=== PATIENT | female | born 1960 | race African-American/Black ===

== ENCOUNTER 2018-07-17 11:01 | Inpatient (IN) | payer MEDICAID ==
[~2018-07-17] VITALS: Ht 152.4 cm; Wt 44.5 kg
[2018-07-17] MEDS ORDERED: ONDANSETRON HCL 4MG/2ML INJ IV STA (11:48)
[2018-07-17] MEDS ORDERED: SODIUM CHLORIDE 0.9% 1,000 ML IV ONE (11:48)
[2018-07-17] MEDS ORDERED: MORPHINE SULFATE 4 MG/ML CPJ (NOT FOR IM USE) IV STA (11:48)
[2018-07-17 12:59] LABS: BASOPHILS % 0.2 % (0.0-2.0); HEMATOCRIT. 45.2 % (36.0-48.0); LYMPHOCYTES % 8.8 % (20.0-50.0); MEAN CORPUSCULAR VOLUME 96.7 fL (81.0-99.0); MEAN PLATELET VOLUME 8.5 fl (7.4-10.4); MONOCYTES % 1.8 % (2.0-8.0); NEUTROPHILS % 89.2 % (40.0-76.0); PLATELET 294 x1000/uL (130-400); RED BLOOD CELL COUNT 4.67 mill/uL (4.2-5.4); RED CELL DISTRIBUTION WIDTH 15.2 % (11.6-14.6)
[2018-07-17] MEDS ORDERED: MORPHINE SULFATE 2 MG/ML CPJ (NOT FOR IM USE) IV NR (13:00)
[2018-07-17 13:10] LABS: CHLORIDE 106 mEq/L (98-107)
[2018-07-17 13:15] LABS: ETHANOL BLOOD < 10 mg/dL
[2018-07-17] MEDS ORDERED: MAGNESIUM 1 G PREMIX 100 ML IV NR (14:15)
[2018-07-17] MEDS ORDERED: GUAIFENESIN 200MG/10ML SUGAR FREE UDC PO PRN (20:30)
[2018-07-17] MEDS ORDERED: IPRATROPIUM/ALBUTEROL 0.5-3(2.5)MG/3ML NEB HHN PRN (20:30)
[2018-07-17] MEDS: HYDROMORPHONE HCL/PF 2MG/ML CPJ IV PRN (20:52)
[2018-07-17 21:13] LABS: T4 FREE 1.1 ng/dL (0.76-1.46)
[2018-07-17] MEDS ORDERED: FAMOTIDINE 20MG TABLET PO NR (21:15)
[2018-07-17] MEDS ORDERED: LEVETIRACETAM 500MG/5ML CUP PO SCH (21:15)
[2018-07-17] MEDS: ENOXAPARIN 60MG/0.6ML SYR SUBCUT SCH (21:59)
[2018-07-18 02:00] VITALS: BP 122/87
[2018-07-18] MEDS ORDERED: SODIUM CHLORIDE 0.9% 1,000 ML IV SCH (02:37)
[2018-07-18] MEDS ORDERED: APIX5TAB PO (02:46)
[2018-07-18] MEDS ORDERED: KEPP500 PO (02:47)
[2018-07-18] MEDS ORDERED: TRAM50TA PO (02:48)
[2018-07-18 04:00] VITALS: BP_SYST 129; BP_SYST 133; BP_DIAS 46; BP_DIAS 52
[2018-07-18] MEDS ORDERED: LIDOCAINE HCL 1% 20ML VIAL (Pyxis) INJ ONE (07:56)
[2018-07-18 08:00] VITALS: BP 110/70
[2018-07-18] MEDS ORDERED: FAMOTIDINE 20MG TABLET PO SCH (09:00)
[2018-07-18 09:11] LABS: INR 1.2; PROTHROMBIN TIME 12.4 sec (9.1-11.1)
[2018-07-18] MEDS: LEVETIRACETAM 500MG/5ML CUP PO SCH ×2 (09:13→21:00)
[2018-07-18] MEDS: FAMOTIDINE 20MG TABLET PO SCH (09:13)
[2018-07-18] MEDS: ENOXAPARIN 60MG/0.6ML SYR SUBCUT SCH (09:14)
[2018-07-18] MEDS: HYDROMORPHONE HCL/PF 2MG/ML CPJ IV PRN ×2 (09:16→17:26)
[2018-07-18] MEDS ORDERED: IOHEXOL-350 100 ML BOTTLE ONE (10:34)
[2018-07-18 12:00] VITALS: BP 95/62
[2018-07-18 16:00] VITALS: BP 91/54
[2018-07-18 20:00] VITALS: BP 95/61
[2018-07-18] MEDS: APIXABAN 5 MG TABLET PO SCH (21:00)
[2018-07-19] VITALS: BP 100/68
[2018-07-19 04:00] VITALS: BP 94/69
[2018-07-19] MEDS: ACETAMINOPHEN 325MG TABLET PO PRN ×3 (04:00→21:08)
[2018-07-19 05:53] LABS: CHLORIDE 110 mEq/L (98-107)
[2018-07-19 06:04] LABS: PHOSPHORUS 1.8 mg/dL (2.5-4.9)
[2018-07-19 08:00] VITALS: BP 101/67
[2018-07-19] MEDS: APIXABAN 5 MG TABLET PO SCH ×2 (08:53→20:00)
[2018-07-19] MEDS: LEVETIRACETAM 500MG/5ML CUP PO SCH ×2 (08:53→21:08)
[2018-07-19] MEDS: FAMOTIDINE 20MG TABLET PO SCH (08:53)
[2018-07-19] MEDS ORDERED: MAGNESIUM 2 G PREMIX 50 ML IV NR (11:00)
[2018-07-19 11:26] LABS: BASOPHILS % 0.4 % (0.0-2.0); EOSINOPHILS % 0.1 % (0.0-5.0); HEMATOCRIT. 38.4 % (36.0-48.0); HEMOGLOBIN. 12.5 g/dL (12.0-16.0); LYMPHOCYTES % 13.3 % (20.0-50.0); MEAN CORPUSCULAR HEMOGLOBIN 30.1 pg (28.0-32.0); MEAN PLATELET VOLUME 9.7 fl (7.4-10.4); MONOCYTES % 3.7 % (2.0-8.0); NEUTROPHILS % 82.5 % (40.0-76.0); PLATELET 174 x1000/uL (130-400); RED BLOOD CELL COUNT 4.14 mill/uL (4.2-5.4); RED CELL DISTRIBUTION WIDTH 14.7 % (11.6-14.6)
[2018-07-19 11:28] LABS: MEAN CORPUSCULAR VOLUME 92.7 fL (81.0-99.0)
[2018-07-19 12:00] VITALS: BP 92/66
[2018-07-19 16:00] VITALS: BP 103/72
[2018-07-19] MEDS: PANTOPRAZOLE SODIUM 40 MG/VIAL IV SCH (17:31)
[2018-07-19 20:00] VITALS: BP 106/67
[2018-07-19 21:59] LABS: CREATINE KINASE MB FRACTION 6.2 ng/mL (0.5-3.6)
[2018-07-20] VITALS: BP 98/72
[2018-07-20 04:00] VITALS: BP 100/71
[2018-07-20] MEDS: PANTOPRAZOLE SODIUM 40 MG/VIAL IV SCH (07:56)
[2018-07-20] MEDS: ONDANSETRON HCL 4MG/2ML INJ IV PRN ×2 (07:56→17:56)
[2018-07-20 08:00] VITALS: BP 93/66
[2018-07-20] MEDS: APIXABAN 5 MG TABLET PO SCH ×2 (08:00→21:15)
[2018-07-20] MEDS: LEVETIRACETAM 500MG/5ML CUP PO SCH ×2 (09:00→21:16)
[2018-07-20] MEDS ORDERED: SIMETHICONE 40 MG/0.6 ML 30ML ONE (10:13)
[2018-07-20] MEDS ORDERED: FENTANYL CITRATE/PF 50MCG/ML 2ML VIAL ONE (11:20)
[2018-07-20] MEDS ORDERED: MIDAZOLAM HCL 5 MG/5 ML VIAL ONE (11:20)
[2018-07-20] MEDS ORDERED: MIDAZOLAM HCL 5 MG/5 ML VIAL IV ONE (11:30)
[2018-07-20] MEDS ORDERED: FENTANYL CITRATE/PF 50MCG/ML 2ML VIAL IV ONE (11:31)
[2018-07-20] MEDS ORDERED: OMEPRAZOLE 20MG CAPSULE EXTENDED RELEASE PO NR (12:45)
[2018-07-20] MEDS: ACETAMINOPHEN 325MG TABLET PO PRN (14:07)
[2018-07-20 14:12] LABS: CHLORIDE 112 mEq/L (98-107)
[2018-07-20 14:15] LABS: INR 1.2; PARTIAL THROMBOPLASTIN TIME 20.3 sec (23.4-31.0); PROTHROMBIN TIME 11.9 sec (9.1-11.1)
[2018-07-20 14:17] LABS: PHOSPHORUS 2.5 mg/dL (2.5-4.9)
[2018-07-20 14:20] LABS: CREATINE KINASE 61 IU/L (26-192)
[2018-07-20 14:23] LABS: CREATINE KINASE MB FRACTION 6.4 ng/mL (0.5-3.6)
[2018-07-20 14:56] LABS: BASOPHILS % 0.6 % (0.0-2.0); EOSINOPHILS % 0.4 % (0.0-5.0); HEMATOCRIT. 42.4 % (36.0-48.0); HEMOGLOBIN. 13.7 g/dL (12.0-16.0); LYMPHOCYTES % 14.2 % (20.0-50.0); MEAN CORPUSCULAR HEMOGLOBIN 30.5 pg (28.0-32.0); MEAN PLATELET VOLUME 8.6 fl (7.4-10.4); MONOCYTES % 3.7 % (2.0-8.0); NEUTROPHILS % 81.1 % (40.0-76.0); RED BLOOD CELL COUNT 4.51 mill/uL (4.2-5.4); RED CELL DISTRIBUTION WIDTH 14.7 % (11.6-14.6)
[2018-07-20 15:00] LABS: PLATELET 230 x1000/uL (130-400)
[2018-07-20] MEDS ORDERED: SODIUM CHLORIDE 0.9% 10ML VIAL ONE (15:22)
[2018-07-20] MEDS: SUCRALFATE 1 G/10 ML UDC PO SCH ×2 (17:56→21:16)
[2018-07-20] MEDS: KETOROLAC 30MG/ML VIAL IV PRN (19:13)
[2018-07-20] MEDS ORDERED: TRAMADOL 50MG TABLET PO PRN (19:15)
[2018-07-20 20:00] VITALS: BP 92/67
[2018-07-20] MEDS: METRONIDAZOLE 500MG TABLET PO SCH (21:15)
[2018-07-21] VITALS: BP 92/63
[2018-07-21] MEDS: KETOROLAC 30MG/ML VIAL IV PRN ×2 (01:03→09:00)
[2018-07-21 04:00] VITALS: BP 91/56
[2018-07-21] MEDS: METRONIDAZOLE 500MG TABLET PO SCH ×2 (05:46→14:25)
[2018-07-21] MEDS: SUCRALFATE 1 G/10 ML UDC PO SCH ×2 (05:46→11:57)
[2018-07-21] MEDS ORDERED: OMEPRAZOLE 20MG CAPSULE EXTENDED RELEASE PO SCH (06:45)
[2018-07-21 08:00] VITALS: BP 91/40
[2018-07-21] MEDS: LEVETIRACETAM 500MG/5ML CUP PO SCH (09:00)
[2018-07-21] MEDS: APIXABAN 5 MG TABLET PO SCH (09:03)
[2018-07-21 12:57] VITALS: BP 91/53
[2018-07-21] MEDS ORDERED: METR500T PO (13:09)
== END 2018-07-21 14:55 | disposition home or self-care (01) | DRG 254 ==
LOC: ER 11:01 → 5WST 15:29 → CANRESERV 23:05 → ENRESERV 23:05
PROVIDERS: ADMIT Internal Medicine; ATTEND Internal Medicine
PROC: 02HV33Z Insertion of Infusion Device into Superior Vena Cava, Percutaneous Approach (ICD-10-PCS; principal; 2018-07-18)
PROC: B548ZZA Ultrasonography of Superior Vena Cava, Guidance (ICD-10-PCS; 2018-07-18)
PROC: 0DB68ZX Excision of Stomach, Via Natural or Artificial Opening Endoscopic, Diagnostic (ICD-10-PCS; 2018-07-20)
PROC: 0DC68ZZ Extirpation of Matter from Stomach, Via Natural or Artificial Opening Endoscopic (ICD-10-PCS; 2018-07-20)
DX: T18.2XXA Foreign body in stomach, initial encounter (principal); I26.99 Other pulmonary embolism without acute cor pulmonale; E43 Unspecified severe protein-calorie malnutrition; K29.60 Other gastritis without bleeding; J84.10 Pulmonary fibrosis, unspecified; I82.431 Acute embolism and thrombosis of right popliteal vein; K28.9 Gastrojejunal ulcer, unspecified as acute or chronic, without hemorrhage or perforation; K31.4 Gastric diverticulum; E83.42 Hypomagnesemia; N28.89 Other specified disorders of kidney and ureter; H54.62 Unqualified visual loss, left eye, normal vision right eye; J45.909 Unspecified asthma, uncomplicated; Z90.49 Acquired absence of other specified parts of digestive tract; I69.351 Hemiplegia and hemiparesis following cerebral infarction affecting right dominant side; Z87.11 Personal history of peptic ulcer disease; Z87.891 Personal history of nicotine dependence; Z82.49 Family history of ischemic heart disease and other diseases of the circulatory system; Z68.1 Body mass index [BMI] 19.9 or less, adult
CPT/HCPCS: 36415; 36569; 71045; 71250; 71275; 74176; 76700; 76937; 77001; 80048; 80076; 82550; 82553; 83735; 83880; 84100; 84439; 84443; 84484; 87015; 87045; 87427; 87449; 87493; 88305; 88312; 88313; 89055; 93005; 93306; 93970; 96361; 96365; 96375; 99152; 99153; 99285; A4216; C1725; C9113; G0482; J1170; J1650; J1885; J2250; J2270; J2405; J3010; J3475; J3490; J7030; Q9967; G0500

== ENCOUNTER 2020-05-12 09:55 | Emergency (ER) | payer MEDICAID ==
[~2020-05-12] VITALS: Ht 152.4 cm; Wt 54.0 kg
[~2020-05-12 09:55] MED LIST: APIX5TAB PO; KEPP500 PO; METR500T PO; TRAM50TA PO
[2020-05-12 11:30] VITALS: BP 117/69
[2020-05-12] MEDS ORDERED: KETOROLAC 60MG/2ML VIAL IM ONE (11:30)
== END 2020-05-12 12:01 | disposition home or self-care (01) ==
LOC: ER 10:46
DX: M79.662 Pain in left lower leg (principal); I82.402 Acute embolism and thrombosis of unspecified deep veins of left lower extremity; Z86.73 Personal history of transient ischemic attack (TIA), and cerebral infarction without residual deficits; Z98.890 Other specified postprocedural states; Z79.899 Other long term (current) drug therapy
CPT/HCPCS: 93005; 96372; 99283; J1885

== ENCOUNTER 2020-07-29 13:15 | Emergency (ER) | payer MEDICAID ==
[~2020-07-29] VITALS: Ht 152.4 cm; Wt 64.0 kg
[2020-07-29 16:38] VITALS: BP 112/78
== END 2020-07-29 16:34 | disposition home or self-care (01) ==
LOC: ER 13:15
DX: M79.605 Pain in left leg (principal); M79.604 Pain in right leg; R00.0 Tachycardia, unspecified
CPT/HCPCS: 93005; 99283

== ENCOUNTER 2020-09-26 14:58 | Inpatient (IN) | payer MEDICAID ==
[~2020-09-26] VITALS: Ht 167.6 cm; Wt 45.6 kg
[~2020-09-26 14:58] MED LIST changes: -METR500T PO
[2020-09-26] MEDS ORDERED: SODIUM CHLORIDE 0.9% 1000ML BAG (SEPSIS BOLUS) IV ONE (16:15)
[2020-09-26 16:35] LABS: BASOPHILS % 0.3 % (0.0-2.0); EOSINOPHILS % 0.1 % (0.0-5.0); HEMOGLOBIN. 10.7 g/dL (12.0-16.0); LYMPHOCYTES % 18.4 % (20.0-50.0); MEAN CORPUSCULAR VOLUME 85.8 fL (81.0-99.0); MEAN PLATELET VOLUME 10.3 fl (7.4-10.4); MONOCYTES % 4.3 % (2.0-8.0); NEUTROPHILS % 76.9 % (40.0-76.0); PLATELET 210 x1000/uL (130-400); RED BLOOD CELL COUNT 3.96 mill/uL (4.2-5.4); RED CELL DISTRIBUTION WIDTH 16.2 % (11.6-14.6)
[2020-09-26 16:46] LABS: INR 1.4; PARTIAL THROMBOPLASTIN TIME 27.1 sec (23.4-31.0); PROTHROMBIN TIME 14.6 sec (9.6-11.0)
[2020-09-26 16:47] LABS: CHLORIDE 109 mEq/L (98-107)
[2020-09-26] MEDS ORDERED: PIPERACILLIN/TAZ 3.375G PREMIX 50 ML IV ONE (17:15)
[2020-09-26] MEDS ORDERED: VANCOMYCIN 1 G PREMIX 200 ML IV ONE (17:15)
[2020-09-26 17:41] LABS: CLARITY URINE CLEAR (CLEAR); COLOR URINE DARK YELLOW (YELLOW); KETONES URINE NEGATIVE (NEGATIVE); LEUKOCYTE ESTERASE URINE TRACE (NEGATIVE); NITRITE URINE NEGATIVE (NEGATIVE); OCCULT BLOOD URINE 2+ (NEGATIVE); PROTEIN URINE TRACE (NEGATIVE); SPECIFIC GRAVITY URINE 1.014 (1.005-1.030)
[2020-09-26] MEDS ORDERED: ONDANSETRON HCL 4MG/2ML INJ IV PRN (20:30)
[2020-09-27] VITALS (7 sets, daily range): BP systolic 107–130; BP diastolic 68–87
[2020-09-27] MEDS: SODIUM CHLORIDE 0.45% 1,000 ML IV SCH ×3 (00:41→23:10)
[2020-09-27] MEDS ORDERED: CEFTRIAXONE 1 G PREMIX 50 ML IV SCH (12:30)
[2020-09-27 12:45] LABS: BASOPHILS % 0.6 % (0.0-2.0); EOSINOPHILS % 1.4 % (0.0-5.0); HEMATOCRIT. 27.8 % (36.0-48.0); HEMOGLOBIN. 8.7 g/dL (12.0-16.0); MEAN CORPUSCULAR HEMOGLOBIN 27.1 pg (28.0-32.0); MEAN CORPUSCULAR VOLUME 87.1 fL (81.0-99.0); MEAN PLATELET VOLUME 10.7 fl (7.4-10.4); MONOCYTES % 4.1 % (2.0-8.0); NEUTROPHILS % 82.9 % (40.0-76.0); PLATELET 140 x1000/uL (130-400); RED CELL DISTRIBUTION WIDTH 15.9 % (11.6-14.6)
[2020-09-27 14:02] LABS: CHLORIDE 109 mEq/L (98-107)
[2020-09-27] MEDS: CEFTRIAXONE 1,000 MG in DEXTROSE 5% WATER 50 ML IV SCH (15:15)
[2020-09-27] MEDS ORDERED: POTASSIUM CHLORIDE INJ 40 MEQ in DEXT 5% WATER 250 ML IV NR (16:30)
[2020-09-27] MEDS ORDERED: METOPROLOL TARTRATE 25MG TABLET PO ONE (19:15)
[2020-09-27] MEDS ORDERED: POTASSIUM CHLORIDE 20MEQ TABLET SR PO NR (19:15)
[2020-09-27] MEDS: LEVETIRACETAM 500MG TABLET PO SCH (20:00)
[2020-09-27] MEDS: METOPROLOL TARTRATE 25MG TABLET PO SCH (20:07)
[2020-09-28] VITALS: BP 129/92
[2020-09-28 04:00] VITALS: BP 95/66
[2020-09-28] MEDS ORDERED: LIDOCAINE HCL 1% 20ML VIAL (Pyxis) INJ ONE (07:31)
[2020-09-28 08:00] VITALS: BP 95/57
[2020-09-28 08:27] LABS: BASOPHILS % 0.3 % (0.0-2.0); EOSINOPHILS % 1.5 % (0.0-5.0); HEMATOCRIT. 31.1 % (36.0-48.0); HEMOGLOBIN. 9.8 g/dL (12.0-16.0); LYMPHOCYTES % 24.6 % (20.0-50.0); MEAN CORPUSCULAR HEMOGLOBIN 26.9 pg (28.0-32.0); MEAN CORPUSCULAR VOLUME 85.8 fL (81.0-99.0); MEAN PLATELET VOLUME 10.5 fl (7.4-10.4); MONOCYTES % 4.4 % (2.0-8.0); NEUTROPHILS % 69.2 % (40.0-76.0); PLATELET 181 x1000/uL (130-400); RED BLOOD CELL COUNT 3.63 mill/uL (4.2-5.4); RED CELL DISTRIBUTION WIDTH 16.2 % (11.6-14.6)
[2020-09-28 08:31] LABS: CHLORIDE 111 mEq/L (98-107)
[2020-09-28] MEDS ORDERED: POTASSIUM CHLORIDE 20MEQ TABLET SR PO SCH (09:00)
[2020-09-28] MEDS: METOPROLOL TARTRATE 25MG TABLET PO SCH ×2 (09:00→20:00)
[2020-09-28] MEDS: MAGNESIUM OXIDE 400MG TABLET PO SCH (09:25)
[2020-09-28] MEDS: LEVETIRACETAM 500MG TABLET PO SCH ×2 (09:26→20:13)
[2020-09-28] MEDS: ACETAMINOPHEN 325MG TABLET PO PRN ×2 (09:57→20:50)
[2020-09-28] MEDS ORDERED: IOHEXOL-350 100 ML BOTTLE ONE (11:43)
[2020-09-28 12:00] VITALS: BP 104/58
[2020-09-28] MEDS: CEFTRIAXONE 1,000 MG in DEXTROSE 5% WATER 50 ML IV SCH (13:48)
[2020-09-28 16:00] VITALS: BP 123/90
[2020-09-28] MEDS: SODIUM CHLORIDE 0.45% 1,000 ML IV SCH (17:07)
[2020-09-28 20:00] VITALS: BP 92/66
[2020-09-28] MEDS: APIXABAN 5 MG TABLET PO SCH (20:14)
[2020-09-29] VITALS: BP 100/78
[2020-09-29 04:00] VITALS: BP 98/56
[2020-09-29 07:30] LABS: BASOPHILS % 0.8 % (0.0-2.0); EOSINOPHILS % 1.7 % (0.0-5.0); HEMATOCRIT. 29.3 % (36.0-48.0); HEMOGLOBIN. 9.2 g/dL (12.0-16.0); LYMPHOCYTES % 17.4 % (20.0-50.0); MEAN CORPUSCULAR HEMOGLOBIN 26.7 pg (28.0-32.0); MEAN CORPUSCULAR VOLUME 84.9 fL (81.0-99.0); MEAN PLATELET VOLUME 10.4 fl (7.4-10.4); MONOCYTES % 4.8 % (2.0-8.0); NEUTROPHILS % 75.3 % (40.0-76.0); PLATELET 163 x1000/uL (130-400); RED BLOOD CELL COUNT 3.45 mill/uL (4.2-5.4)
[2020-09-29 07:42] LABS: CHLORIDE 110 mEq/L (98-107)
[2020-09-29 08:00] VITALS: BP 100/68
[2020-09-29] MEDS: METOPROLOL TARTRATE 25MG TABLET PO SCH ×2 (09:00→21:00)
[2020-09-29] MEDS: LEVETIRACETAM 500MG TABLET PO SCH ×2 (09:21→20:55)
[2020-09-29] MEDS: APIXABAN 5 MG TABLET PO SCH ×2 (09:21→20:55)
[2020-09-29] MEDS: MAGNESIUM OXIDE 400MG TABLET PO SCH (09:22)
[2020-09-29 12:00] VITALS: BP 96/65
[2020-09-29] MEDS: CEFTRIAXONE 1,000 MG in DEXTROSE 5% WATER 50 ML IV SCH (14:21)
[2020-09-29 16:00] VITALS: BP 95/63
[2020-09-29] MEDS: SODIUM CHLORIDE 0.45% 1,000 ML IV SCH (16:41)
[2020-09-29] MEDS: ACETAMINOPHEN 325MG TABLET PO PRN ×2 (16:42→23:54)
[2020-09-29 20:00] VITALS: BP 101/67
[2020-09-30] VITALS (7 sets, daily range): BP systolic 97–119; BP diastolic 58–75
[2020-09-30] MEDS: SODIUM CHLORIDE 0.45% 1,000 ML IV SCH ×3 (01:52→22:09)
[2020-09-30] MEDS: METOPROLOL TARTRATE 25MG TABLET PO SCH ×2 (08:52→21:00)
[2020-09-30] MEDS: ACETAMINOPHEN 325MG TABLET PO PRN ×2 (08:52→21:51)
[2020-09-30] MEDS: LEVETIRACETAM 500MG TABLET PO SCH ×2 (08:52→21:50)
[2020-09-30] MEDS: APIXABAN 5 MG TABLET PO SCH ×2 (08:52→21:50)
[2020-09-30] MEDS: MAGNESIUM OXIDE 400MG TABLET PO SCH (08:52)
[2020-09-30] MEDS: CEFTRIAXONE 1,000 MG in DEXTROSE 5% WATER 50 ML IV SCH (15:21)
[2020-09-30] MEDS ORDERED: CALCIUM GLUCONATE 1,000 MG in DEXT 5% WATER 90 ML IV NR (17:30)
[2020-09-30] MEDS ORDERED: CALCIUM GLUCONATE 1GM PREMIX 50 ML IV NR (18:15)
[2020-09-30] MEDS ORDERED: CEFTRIAXONE 1,000 MG in DEXTROSE 5% WATER 50 ML IV SCH (18:15)
[2020-10-01 04:00] VITALS: BP 94/55
[2020-10-01 08:00] VITALS: BP 90/57
[2020-10-01] MEDS: METOPROLOL TARTRATE 25MG TABLET PO SCH (08:09)
[2020-10-01] MEDS: LEVETIRACETAM 500MG TABLET PO SCH (08:20)
[2020-10-01] MEDS: APIXABAN 5 MG TABLET PO SCH (08:21)
[2020-10-01] MEDS: MAGNESIUM OXIDE 400MG TABLET PO SCH (08:21)
[2020-10-01 09:49] VITALS: BP 98/61
== END 2020-10-01 11:25 | disposition home health service (06) | DRG 720 ==
LOC: ER 14:58 → 5WST 19:39 → EDBEDREQTM 19:44 → EDBEDREQ 19:44 → EDBEDREQSVC 19:44 → ENRESERV 21:54
PROVIDERS: ADMIT Internal Medicine; ATTEND Internal Medicine
PROC: 02HV33Z Insertion of Infusion Device into Superior Vena Cava, Percutaneous Approach (ICD-10-PCS; 2020-09-28)
PROC: B548ZZA Ultrasonography of Superior Vena Cava, Guidance (ICD-10-PCS; 2020-09-28)
PROC: 4A00X4Z Measurement of Central Nervous Electrical Activity, External Approach (ICD-10-PCS; principal; 2020-09-30)
DX: A41.9 Sepsis, unspecified organism (principal); E43 Unspecified severe protein-calorie malnutrition; N17.0 Acute kidney failure with tubular necrosis; G40.909 Epilepsy, unspecified, not intractable, without status epilepticus; N39.0 Urinary tract infection, site not specified; E87.8 Other disorders of electrolyte and fluid balance, not elsewhere classified; E87.6 Hypokalemia; D64.9 Anemia, unspecified; Z86.73 Personal history of transient ischemic attack (TIA), and cerebral infarction without residual deficits; Z79.01 Long term (current) use of anticoagulants; Z79.899 Other long term (current) drug therapy; Z68.1 Body mass index [BMI] 19.9 or less, adult
CPT/HCPCS: 36415; 70496; 71045; 76937; 80048; 80053; 81003; 83605; 83735; 83880; 84145; 84484; 85025; 93005; 93306; 93970; 95816; 96365; 97116; 97162; 97164; 99291; C1725; J0610; J0696; J2543; J3370; J3480; J3490; J7030; J7060; Q9967